=== PATIENT | male | born 1960 | race Caucasian/White ===

== ENCOUNTER 2018-11-08 14:14 | Inpatient (IN) | payer OTHER, MEDICAID ==
[~2018-11-08] VITALS: Ht 91.4 cm; Wt 70.8 kg
--- NOTE | 2018-11-08 14:19 | NUR ---
Patient to ER bed 05 to gown for evaluation. Side rails up.
[2018-11-08 14:21] VITALS: BP_SYST 128
--- NOTE | 2018-11-08 14:25 | NUR ---
Pt bib EMS from [facility] for further evaluation of lower abd pain.Pt h/o bilateral AKA,colostomy,HTN,DM,Blindness,osteomylitis,Stage IV decub coccyx,MRSA wounds and hyperlipidemia.
--- NOTE | 2018-11-08 14:29 | NUR ---
ER at bedside examining patient.
--- NOTE | 2018-11-08 14:40 | NUR ---
# 20 gauge angiocath placed to RAC. Use of asceptic technique. Opsite placed over site. Blood return noted. Blood for lab drawn from site. Flushed with 10 cc of normal saline. No evidence of infiltration noted. Patient tolerated well.
[2018-11-08 14:58] LABS: HEMATOCRIT 41.5 % (36-54); HEMOGLOBIN 13.5 g/dL (14.0-18.0); LYMPHOCYTES % (AUTO) 14.7 % (20.5-51.5); MEAN CORPUSCULAR HEMOGLOBIN 28 pg (27-31); MEAN CORPUSCULAR HGB CONC 33 % (32-36); MEAN CORPUSCULAR VOLUME 85 fL (79.0-98.0); MONOCYTES % (AUTO) 10.7 % (1.7-9.3); NEUTROPHILS % (AUTO) 71.6 % (40.0-70.0); PLATELET COUNT (AUTO) 334 K/uL (130-430); RED BLOOD CELL COUNT(AUTO) 4.88 MIL/uL (4.2-6.2); RED CELL DISTRIBUTION WIDTH 15.6 % (9.0-15.0); WHITE BLOOD COUNT (AUTO) 11.1 K/uL (4.8-10.8)
[2018-11-08 14:59] LABS: BASOPHILS # (AUTO) 0.1 K/uL (0.0-0.2); BASOPHILS % (AUTO) 0.7 % (0.0-2.0); EOSINOPHILS # (AUTO) 0.3 K/uL (0.0-0.4); EOSINOPHILS % (AUTO) 2.3 % (0.0-4.0); LYMPHOCYTES # (AUTO) 1.6 K/uL (1.0-5.5); MONOCYTES # (AUTO) 1.2 K/uL (0.0-1.0); NEUTROPHILS # (AUTO) 7.9 K/uL (1.8-7.7)
--- NOTE | 2018-11-08 15:03 | NUR ---
Patient transported to radiology via GURNEY, accompanied by RAD STAFF.
--- NOTE | 2018-11-08 15:10 | NUR ---
Returned from radiology, back to [facility].
[2018-11-08 15:11] LABS: ACETONE, SERUM NEGATIVE (NEGATIVE)
[2018-11-08 15:12] LABS: POTASSIUM 4.3 mmol/L (3.5-5.1); SODIUM SERUM 139 mmol/L (136-145)
--- NOTE | 2018-11-08 15:12 | NUR ---
Medication reconciliation completed with information provided by FACILITY. Any prior medication reconciliation on file was reviewed and corrected.
[2018-11-08 15:13] LABS: ALANINE AMINOTRANSFERASE 35 U/L (12-78); ANION GAP 8 (5-15); ASPARTATE AMINOTRANSFERASE 23 U/L (10-37); CALCIUM 9.2 mg/dL (8.4-11.0); CHLORIDE 100 mmol/L (98-107); CREATININE 0.85 mg/dL (0.55-1.30); GFR AFRICAN AMERICAN 119 mL/min (>90); GLUCOSE 176 mg/dL (70-99); TOTAL BILIRUBIN 0.2 mg/dL (0.0-1.0); UREA NITROGEN, BLOOD 14 mg/dL (8-21)
[2018-11-08 15:32] LABS: CLARITY/URINE CLEAR (CLEAR); COLOR,URINE YELLOW (YELLOW)
[2018-11-08 15:33] LABS: BILIRUBIN,URINE NEGATIVE (NEGATIVE); BLOOD, URINE NEGATIVE (NEGATIVE); GLUCOSE,URINE NEGATIVE (NEGATIVE); KETONES,URINE NEGATIVE (NEGATIVE); LEUKOCYTE ESTERASE ,URINE NEGATIVE (NEGATIVE); NITRITE, URINE NEGATIVE (NEGATIVE); PROTEIN URINE NEGATIVE (NEGATIVE); UROBILINOGEN,URINE 0.2 (0.2-1.0)
[2018-11-08] MEDS ORDERED: ONDANSETRON HCL 4 MG/2 ML VIAL IVP ONE (16:00)
[2018-11-08] MEDS ORDERED: MORPHINE 2 MG/ML INJ. SYRINGE IVP ONE (16:00)
--- NOTE | 2018-11-08 16:30 | NUR ---
Pt medicated tolerated well.
--- NOTE | 2018-11-08 16:41 | NUR ---
Patient will be admitted to care of Kj OLVERA. Admitted to MED/SURG unit. Will go to room 111. Belongings list completed. Summary report printed. Report will be given at bedside.
--- NOTE | 2018-11-08 17:14 | NUR ---
ADMISSION NOTE Received patient from ER via gurney. Patient admitted with diagnosis of ingiunal hernia. Patient is awake, alert, oriented X 4. Patient oriented to hospital room, call light, toileting, pain management and safety-teach back done. Patient informed that will be nurse and that their room number is his. Personal belongings checked and Belongings List documented. Call light within reach.
[2018-11-08 17:18] VITALS: BP_SYST 105
--- NOTE | 2018-11-08 17:56 | NUR ---
CONSULT SURGERY INGUINAL HERNIA DR HALL [phone] S/W BESSIE EXCHANGE DR HALL IS ON SUSPENSION DR BRUCE WITH KATHY CHARGE NURSE
--- NOTE | 2018-11-08 18:50 | NUR ---
Closing Note Patient is sleeping in bed. Contact isolation precautions are in place. Patient is in stable condition. Will endorse care to the oncoming nurse
--- NOTE | 2018-11-08 19:37 | NUR ---
OPENING NOTE Received report from EGORGE Cardenas. Patient resting in bed with eyes closed. Breathing unlabored and even on room air. No signs of distress, no needs at this time. Fall, safety, contact precautions in place. Bed in lowest position, brake on, alarm on, call light within reach. Will continue to monitor.
[2018-11-08 20:47] VITALS: BP_SYST 113
--- NOTE | 2018-11-08 21:02 | NUR ---
Patient refused shift assessment.
--- NOTE | 2018-11-08 21:23 | NUR ---
Paged Delvin Curiel s/w Emely
[2018-11-08] MEDS ORDERED: D5W 1,000 ML IV PRN (21:29)
[2018-11-08] MEDS ORDERED: HYDROcodone/ACETAMIN 7.5-325 MG TAB PO PRN (21:30)
[2018-11-08] MEDS ORDERED: DEXTROSE 50% JECT 50 ML DISP.SYRIN IVP PRN (21:30)
[2018-11-08] MEDS ORDERED: GLUCOSE 15 GM GEL (in 37.5 GM TUBE) PO PRN (21:30)
[2018-11-08] MEDS ORDERED: ONDANSETRON HCL 4 MG/2 ML VIAL IVP PRN (21:30)
--- NOTE | 2018-11-08 21:50 | NUR ---
Dr. King called back. Orders received
--- NOTE | 2018-11-08 21:50 | NUR ---
Dr. Morton at the bedside.
[2018-11-08] MEDS: MORPHINE 2 MG/ML INJ. SYRINGE IVP PRN (21:52)
[2018-11-08] MEDS ORDERED: MORPHINE 2 MG/ML INJ. SYRINGE ONE (21:54)
[2018-11-08] MEDS: INSULIN REGULAR, HUMAN 100 UNITS/ML, 10 ML VIAL (humuLIN R) SUBCUT PRN (21:55)
--- NOTE | 2018-11-08 22:03 | NUR ---
Patient c/o pain. Administered prn morphine IVP as ordered.
--- NOTE | 2018-11-09 | NUR ---
Patient is now NPO
[2018-11-09] MEDS: D5NS 1,000 ML IV SCH ×2 (00:28→14:01)
--- NOTE | 2018-11-09 02:50 | NUR ---
Patient resting in bed with eyes closed. Breathing unlabored and even on room air. No signs of distress, no needs at this time. Fall, safety, contact precautions in place. Bed in lowest position, brake on, alarm on, call light within reach. IVF infusing as ordered. Will continue to monitor.
[2018-11-09] MEDS: MORPHINE 2 MG/ML INJ. SYRINGE IVP PRN ×5 (04:29→20:44)
--- NOTE | 2018-11-09 04:32 | NUR ---
Patient c/o pain. Administered PRN morphine IVP as ordered.
[2018-11-09] MEDS: INSULIN REGULAR, HUMAN 100 UNITS/ML, 10 ML VIAL (humuLIN R) SUBCUT PRN (05:59)
--- NOTE | 2018-11-09 06:00 | NUR ---
Blood sugar: 140. No insulin coverage needed per PRN insulin sliding scale.
--- NOTE | 2018-11-09 06:51 | NUR ---
CLOSING NOTE Patient resting in bed with eyes closed. Breathing unlabored and even on room air. No signs of distress, no needs at this time. Fall, safety, contact precautions in place. Bed in lowest position, brake on, alarm on, call light within reach. IVF infusing as ordered. Will endorse cares to day shift nurse.
--- NOTE | 2018-11-09 07:25 | NUR ---
Opening Note: Patient in bed resting. Patient denies pain and discomfort at this time. Breathing is even and unlabored with no distress noted. IV patent and intact running IVF per MD orders. Urinal within reach. Safety precautions in place; bed in lowest position, wheels locked, side rails x3, bed alarm activated and call light within reach. No needs at this time. Will continue to monitor.
[2018-11-09 08:36] VITALS: BP_SYST 129
--- NOTE | 2018-11-09 08:43 | NUR ---
REFUSED TURNING/REPOSITIONING: PATIENT IN BED LAYING SUPINE, EXPLAINED TO PATIENT IMPORTANCE OF TURNING SIDE TO SIDE ONLY TO PREVENT FURTHER SKIN BREAKDOWN. PATIENT STATED "YOU KNOW WHAT I CAN TURN BY MYSELF WHEN I WANT TO AND I DON'T WANT TO TURN RIGHT NOW."
--- NOTE | 2018-11-09 10:08 | NUR ---
Rounds: Patient in bed resting, supine position. Refused to turn regardless of eduction. Will continue to monitor.
--- NOTE | 2018-11-09 10:30 | NUR ---
Nutrition Update Abhinav Scale 13 noted. Pt admitted for inguinal hernia. Diet: NPO BMI: 84.9 kg/m2 RD to follow per nutrition care standards.
--- NOTE | 2018-11-09 11:30 | NUR ---
Patient refused Blood sugar check: Patient refused blood sugar check. Will attempt to check blood sugar @1700 per MD orders.
[2018-11-09 11:35] VITALS: BP_SYST 148
--- NOTE | 2018-11-09 12:15 | NUR ---
Rounds/Refused IVF/Refused Wound Care: Patient in bed resting. Supine position, refused to be turned. Patient asked for IVF to be disconnected stating "Take this tube off of me, I don't need you to tell me why I'm taking the fluids, you know I've been in a hospital before and there's nothing new that you're going to teach me." Attempted to assess skin and do wound care patient refused as well.
--- NOTE | 2018-11-09 13:47 | NUR ---
Dietitian Recommendations * [facility], Glucerna BID, Dax BID if/when medically appropriate (modulars provide an additional 620 kcal/day and 25 gm protein/day) LP, RD Please refer to Nutrition Assessment for details.
--- NOTE | 2018-11-09 14:01 | NUR ---
Rounds/turning/ IVF: Patient in bed resting. Refused to be tuned and refused to be hooked up back to IVF. When asked about pain level for reassessment patient said, "Go away, and you let that doctor know if he's not going to do anything to send me home." No distress noted. Will continue to monitor.
--- NOTE | 2018-11-09 14:15 | NUR ---
Spoke to Dr. King: Spoke to Dr. King, made aware of patient refusing accuchecks and IVF. Diet orders received. Orders to be entered by RN.
--- NOTE | 2018-11-09 14:48 | NUR ---
Refused to eat: Patient offered snack, juice, turkey sandwich. Patient refused to eat. Snack left at bedside and patient encouraged to eat.
[2018-11-09 16:08] VITALS: BP_SYST 155
--- NOTE | 2018-11-09 16:43 | NUR ---
Pain Medication/Refused Blood sugar check: Patient refused blood sugar check. Medicated for severe pain, will reassess.
--- NOTE | 2018-11-09 17:36 | NUR ---
Spoke to Dr. May/Plan: Received call from Dr. May, per Dr. May "There's no indication for surgery based on the Abdominal/Pelvis CT. There and no signs of hernia, can you let Dr. King know." Informed Dr. May that I already spoke to Dr. King and made him aware, and that Dr. King put the patient on a CCHO diet and will most likely discharge him back to SNF. No orders received.
--- NOTE | 2018-11-09 18:57 | NUR ---
Closing Note: Patient in bed resting. Patient denies pain and discomfort at this time. Breathing is even and unlabored with no distress noted. IV patent and intact, saline locked secondary to patient refusing IVF. Patient refused colostomy burping stating "the bag is fine." Isolation precautions in place. Safety precautions in place; bed in lowest position, wheels locked, side rails x3, bed alarm activated and call light within reach. All needs met. Will endorse plan of care to NOC, nurse.
[2018-11-09 20:00] VITALS: BP_SYST 147
--- NOTE | 2018-11-09 20:00 | NUR ---
Initial Note Received patient asleep but arousable. Alert and oriented and a little bit withdrawn. Answers question. No SOB noted. Denies any n/v at this time. Complain of pain and will medicated. VS taken and stable. Saline lock, refused IVF to be connected. Given warm blanket as requested. Chace AKA. Repositions himself to the left side. Refused to have his colostomy checked and back side. Patient verbalized "Its fine! its doesn't have gas". Call light within reach. Bed alarm on and at lowest position at all times. Care and monitoring will be provided per protocol. Needs attended. Kept warm and comfortable.
--- NOTE | 2018-11-09 20:44 | NUR ---
RN Note Patient agreed to have his VS checked and blood sugar checked earlier. Blood sugar was 119, no coverage given. Medicated for pain per patient's request. Made him aware the next pain medication is due. Able to reposition himself. Asked if he wants me to close the blinds on his windows and he replied that he is blind. AM RN didn't endorsed that patient is blind. Still refusing to check his colostomy and skin/wound.
--- NOTE | 2018-11-09 21:50 | NUR ---
RN Note Patient sleeping at this time. No SOB or grimacing noted.
--- NOTE | 2018-11-09 22:47 | NUR ---
Transfer of Care Afebrile. No changes from previous assessment. Still refusing to be assessed. Refused IVF, colostomy care and skin assessment. Medicated for pain one time. Repositions himself. Care and monitoring provided per protocol. Call light within reach. Bed alarm onand at lowest position at all times. Needs attended. Endorsed to GEORGE Valdez.
[2018-11-10] MEDS: MORPHINE 2 MG/ML INJ. SYRINGE IVP PRN ×5 (00:53→17:19)
--- NOTE | 2018-11-10 01:14 | NUR ---
DR. LISA GONZALEZ HERE MAKING ROUNDS AND SAW PATIENT. WILL CONTINUE TO MONITOR.
--- NOTE | 2018-11-10 02:08 | NUR ---
DR. GONZALEZ CALLED AND TALKED TO DR. GONZALEZ, PATIENT MRSA NARES (+) PER LAB. NEW ORDERS GIVEN. WILL CONTINUE TO MONITOR.
[2018-11-10 02:29] VITALS: BP_SYST 153
--- NOTE | 2018-11-10 04:13 | NUR ---
ROUNDS PATIENT ASLEEP, RESPIRATIONS EVEN AND UNLABORED, NO PAIN AND DISCOMFORT NOTED. WILL CONTINUE TO MONITOR.
[2018-11-10] MEDS: metroNIDAZOLE 500 MG TABLET PO SCH ×2 (06:00→13:17)
--- NOTE | 2018-11-10 06:34 | NUR ---
CLOSING NOTES PATIENT REFUSED DUE MEDICATION FLAGYL AND ACCU CHECK AT THIS TIME. RISKS AND BENEFITS EXPLAINED BUT PATIENT STILL REFUSED. SAFETY AND FALL PRECAUTION MEASURES MAINTAINED. CALL LIGHT PLACED WITHIN REACH.
--- NOTE | 2018-11-10 07:38 | NUR ---
OPENING NOTE Patient resting in the bed. No acute distress. AAO x 4. No c/o pain at this time. Skin warm and dry to touch. SL intact to RAC, no redness, no swelling. Colostomy bag intact to left abdomen, no stool, no leakage noted at this time. On contact isolation. Discussed the safety issue, use call light when needs help, and plan of care, verbally understanding. Safety measure maintained. Bed locked in low position, side rails up, bed alarm on. Call light within reached. Will continue to monitor.
[2018-11-10 08:00] VITALS: BP_SYST 159
[2018-11-10] MEDS ORDERED: MUPIROCIN 2% TOPICAL OINTMENT 22 GM NS SCH (09:00)
--- NOTE | 2018-11-10 09:15 | NUR ---
MORPHINE GIVEN Patient c/o generalized pain 01/31, Morphine 2mg IVP given as ordered. No acute distress. Safety measure maintained. Call light within reached. Bed locked in low position, side rails up, bed alarm on. Call light within reached. Continue on contact isolation. Continue to monitor.
[2018-11-10] MEDS ORDERED: LEVOFLOXACIN 500 MG TABLET PO SCH (10:00)
[2018-11-10 12:10] VITALS: BP_SYST 147
--- NOTE | 2018-11-10 12:18 | NUR ---
ZA=[id number] No insulin coverage needed per sliding scale for TC=439.
--- NOTE | 2018-11-10 13:18 | NUR ---
MORPHINE GIVEN Patient c/o generalized pain 01/31, Morphine 2mg IVP given as ordered. No acute distress. Safety measure maintained. Call light within reached. Bed locked in low position, side rails up, bed alarm on. Continue on contact isolation. Continue to monitor.
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
--- NOTE | 2018-11-10 15:27 | NUR ---
Discharge Planning: DCP faxed to [facility] (f [phone] p [phone]) accepted back to [facility], [place] ([phone]). Patient nurse made aware, packet taken to nurse station. Addendum: 11/10/18 at 1531 by Moni Burns DP Patient to be picked up at 4:30pm
[2018-11-10 16:00] VITALS: BP_SYST 148
--- NOTE | 2018-11-10 16:05 | NUR ---
REPORT GIVEN Called [facility], report given to GERONIMO Chase. The patient will admit to room 9A.
[2018-11-10 17:01] VITALS: BP_SYST 148
--- NOTE | 2018-11-10 17:40 | NUR ---
PT TRANSFERRED Report given to GERONIMO Chase at 1605. Transfer packet with Transfer Orders and Medication Reconciliation form given to EMT with report. Exitcare provided. [facility] ID band removed, replaced with ID band with pt's name and . IV catheter removed, intact and dressing applied, no active bleeding. All belongings sent with patient. Patient left floor via gurney escorted by EMT in no distress.
[2018-11-11] MEDS ORDERED: BALSAM PERU/CASTOR OIL 60 GM OINT...G. TP SCH (09:00)
== END 2018-11-10 17:40 | DRG 394 ==
LOC: SED 14:14 → SMU 16:13
PROVIDERS: ADMIT Internal Medicine Infectious Disease; ATTEND Internal Medicine Infectious Disease
DX: K42.9 Umbilical hernia without obstruction or gangrene (principal); F20.0 Paranoid schizophrenia; E11.9 Type 2 diabetes mellitus without complications; E78.5 Hyperlipidemia, unspecified; D72.829 Elevated white blood cell count, unspecified; J44.9 Chronic obstructive pulmonary disease, unspecified; L89.152 Pressure ulcer of sacral region, stage 2; L89.229 Pressure ulcer of left hip, unspecified stage; F17.200 Nicotine dependence, unspecified, uncomplicated; H54.7 Unspecified visual loss; Z89.611 Acquired absence of right leg above knee; Z89.612 Acquired absence of left leg above knee; Z93.3 Colostomy status; Z88.8 Allergy status to other drugs, medicaments and biological substances; Z91.018 Allergy to other foods
CPT/HCPCS: 36415; 80053; 81003; 82009-TC; 82962; 85025; 87081; 93005; 96374; 96375; 99285; J1815; J2270; J2405; J7042

== ENCOUNTER 2019-04-12 10:22 | Emergency (ER) | payer OTHER, MEDICAID ==
[~2019-04-12] VITALS: Ht 152.4 cm; Wt 71.7 kg
[2019-04-12 10:25] VITALS: BP_SYST 132
[2019-04-12] MEDS ORDERED: NACL 0.9% 1,000 ML IV ONE (10:30)
[2019-04-12 11:16] LABS: CALCIUM 9.2 mg/dL (8.4-11.0); CREATININE 0.87 mg/dL (0.55-1.30); POTASSIUM 4.5 mmol/L (3.5-5.1)
[2019-04-12 11:18] LABS: BASOPHILS # (AUTO) 0.1 K/uL (0.0-0.2); BASOPHILS % (AUTO) 1.2 % (0.0-2.0); EOSINOPHILS # (AUTO) 0.3 K/uL (0.0-0.4); EOSINOPHILS % (AUTO) 2.7 % (0.0-4.0); HEMATOCRIT 44.8 % (36-54); LYMPHOCYTES # (AUTO) 1.4 K/uL (1.0-5.5); LYMPHOCYTES % (AUTO) 13.9 % (20.5-51.5); MEAN CORPUSCULAR HEMOGLOBIN 29 pg (27-31); MEAN CORPUSCULAR HGB CONC 33 % (32-36); MEAN CORPUSCULAR VOLUME 85 fL (79.0-98.0); MONOCYTES % (AUTO) 9.7 % (1.7-9.3); NEUTROPHILS # (AUTO) 7.6 K/uL (1.8-7.7); NEUTROPHILS % (AUTO) 72.5 % (40.0-70.0); PLATELET COUNT (AUTO) 242 K/uL (130-430); RED BLOOD CELL COUNT(AUTO) 5.25 MIL/uL (4.2-6.2); RED CELL DISTRIBUTION WIDTH 16.8 % (9.0-15.0); WHITE BLOOD COUNT (AUTO) 10.4 K/uL (4.8-10.8)
[2019-04-12 11:21] LABS: ALBUMIN 3.3 g/dL (3.4-4.8); TOTAL BILIRUBIN 0.2 mg/dL (0.0-1.0)
[2019-04-12 11:43] LABS: BILIRUBIN,URINE NEGATIVE (NEGATIVE); BLOOD, URINE NEGATIVE (NEGATIVE); CLARITY/URINE TURBID (CLEAR); COLOR,URINE YELLOW (YELLOW); GLUCOSE,URINE NEGATIVE (NEGATIVE); KETONES,URINE NEGATIVE (NEGATIVE); LEUKOCYTE ESTERASE ,URINE TRACE (NEGATIVE); NITRITE, URINE NEGATIVE (NEGATIVE); PROTEIN URINE 1+ (NEGATIVE); UROBILINOGEN,URINE 0.2 (0.2-1.0)
[2019-04-12 11:59] LABS: BACTERIA,URINE FEW /HPF (None Seen); RBC,URINE 0-3 /HPF (0-3)
[2019-04-12] MEDS ORDERED: INSULIN REGULAR, HUMAN 10 UNITS/0.1 ML INJ IVP ONE (12:15)
[2019-04-12] MEDS ORDERED: cefTRIAXone 1 GM IVPB PREMIX 50 ML IV ONE (12:15)
[2019-04-12] MEDS ORDERED: MORPHINE 4 MG/ML INJ. SYRINGE IVP ONE (12:30)
[2019-04-12 14:30] VITALS: BP_SYST 132
== END 2019-04-12 14:21 | disposition home or self-care (01) ==
LOC: SED 10:22
DX: N39.0 Urinary tract infection, site not specified (principal); L98.429 Non-pressure chronic ulcer of back with unspecified severity; I10 Essential (primary) hypertension; E11.9 Type 2 diabetes mellitus without complications; J44.9 Chronic obstructive pulmonary disease, unspecified; F17.210 Nicotine dependence, cigarettes, uncomplicated; Z91.018 Allergy to other foods; Z71.6 Tobacco abuse counseling
CPT/HCPCS: 36415; 71045; 80053; 81000; 82962; 83605; 84484; 85025; 87040; 87086; 93005; 96365; 96375; 99284; J0696; J1815; J2270; J7030

== ENCOUNTER 2020-07-14 02:08 | Inpatient (IN) | payer OTHER, MEDICAID, SELFPAY ==
[~2020-07-14] VITALS: Ht 104.1 cm; Wt 84.4 kg
[2020-07-14 05:22] VITALS: BP_SYST 98
[2020-07-14 05:30] VITALS: BP_SYST 108
[2020-07-14] MEDS ORDERED: ALBUMIN HUMAN 25% 200 ML IV ONE (05:30)
[2020-07-14] MEDS ORDERED: ONDANSETRON HCL 4 MG/2 ML VIAL IVP PRN (05:30)
[2020-07-14] MEDS ORDERED: LORazepam 2 MG/ML VIAL IVP PRN ×2 (05:30→18:00)
[2020-07-14] MEDS: HYDROmorphone 1 MG INJ. 1 MG/ML AMPUL IVP PRN ×5 (05:50→23:00)
[2020-07-14] MEDS: NACL 0.9% 1,000 ML IV SCH ×2 (05:51→23:12)
[2020-07-14] MEDS ORDERED: ZINC50TA69 PO (06:02)
[2020-07-14] MEDS ORDERED: PREG200C PO (06:02)
[2020-07-14] MEDS ORDERED: ACET325T53 PO (06:02)
[2020-07-14] MEDS ORDERED: DOCU-144 PO (06:02)
[2020-07-14] MEDS ORDERED: ASPI-1393 PO (06:02)
[2020-07-14] MEDS ORDERED: ASCO500T20 PO (06:02)
[2020-07-14] MEDS ORDERED: GLU500 PO (06:02)
[2020-07-14] MEDS ORDERED: CHOL100038 PO (06:02)
[2020-07-14] MEDS ORDERED: CRAN450T9 PO (06:02)
[2020-07-14] MEDS ORDERED: BACL10TA PO (06:02)
[2020-07-14] MEDS ORDERED: LISI10TA PO (06:02)
[2020-07-14] MEDS ORDERED: ACETAMINOPHEN 325 MG TABLET PO PRN (06:15)
[2020-07-14] MEDS: ASCORBIC ACID 500 MG TABLET PO SCH (07:57)
[2020-07-14] MEDS: DEXAMETHASONE SOD PHOSPHATE 10 MG/ML VIAL IVP SCH (07:57)
[2020-07-14 07:59] LABS: BASOPHILS # (AUTO) 0.1 K/uL (0.0-0.2); BASOPHILS % (AUTO) 0.9 % (0.0-2.0); EOSINOPHILS % (AUTO) 0.2 % (0.0-4.0); HEMATOCRIT 38.3 % (36-54); HEMOGLOBIN 12.2 g/dL (14.0-18.0); LYMPHOCYTES # (AUTO) 0.6 K/uL (1.0-5.5); LYMPHOCYTES % (AUTO) 9.1 % (20.5-51.5); MEAN CORPUSCULAR HEMOGLOBIN 28 pg (27-31); MEAN CORPUSCULAR HGB CONC 32 % (32-36); MEAN CORPUSCULAR VOLUME 86 fL (79.0-98.0); MONOCYTES # (AUTO) 0.6 K/uL (0.0-1.0); MONOCYTES % (AUTO) 9.8 % (1.7-9.3); PLATELET COUNT (AUTO) 179 K/uL (130-430); RED BLOOD CELL COUNT(AUTO) 4.44 MIL/uL (4.2-6.2); RED CELL DISTRIBUTION WIDTH 17.7 % (9.0-15.0); WHITE BLOOD COUNT (AUTO) 6.3 K/uL (4.8-10.8)
[2020-07-14 08:24] LABS: ALBUMIN 3.6 g/dL (3.4-4.8); CALCIUM 8.6 mg/dL (8.4-11.0); CREATININE 0.85 mg/dL (0.55-1.30); POTASSIUM 4.6 mmol/L (3.5-5.1); THYROID STIMULATING HORMONE 1.68 uIu/mL (0.36-3.74); TOTAL BILIRUBIN 0.6 mg/dL (0.0-1.0)
[2020-07-14 08:30] VITALS: BP_SYST 108
[2020-07-14] MEDS: ALBUTEROL SULFATE 0.083% 2.5 MG/3 ML VIAL.NEB INH PRN (08:52)
[2020-07-14] MEDS: IPRATROPIUM BROM 0.5 MG/2.5 ML VIAL.NEB (ATROVENT) INH PRN (08:52)
[2020-07-14] MEDS ORDERED: NON-FORMULARY MEDICATION (Zinc 50 MG) PO SCH (09:00)
[2020-07-14] MEDS: cefTRIAXone 1 GM in D5W 50 ML IV SCH (10:24)
[2020-07-14] MEDS: CHOLECALCIFEROL (VITAMIN D3) 2,000 UNIT TABLET PO SCH (10:31)
[2020-07-14] MEDS: AZITHROMYCIN 500 MG in NS 250 ML IV SCH (11:29)
[2020-07-14 11:43] VITALS: BP_SYST 136
[2020-07-14 16:00] VITALS: BP_SYST 115
[2020-07-14] MEDS: INSULIN REGULAR, HUMAN 100 UNITS/ML, 10 ML VIAL (humuLIN R) SUBCUT PRN ×2 (18:19→20:55)
[2020-07-14 19:49] VITALS: BP_SYST 121; BP_SYST 123
[2020-07-14 20:41] LABS: BILIRUBIN,URINE 1+ (NEGATIVE); CLARITY/URINE CLEAR (CLEAR); COLOR,URINE YELLOW (YELLOW); GLUCOSE,URINE NEGATIVE (NEGATIVE); KETONES,URINE TRACE (NEGATIVE); LEUKOCYTE ESTERASE ,URINE NEGATIVE (NEGATIVE); NITRITE, URINE NEGATIVE (NEGATIVE); PROTEIN URINE 3+ (NEGATIVE)
[2020-07-14 20:44] LABS: BLOOD, URINE TRACE (NEGATIVE)
[2020-07-14 20:55] LABS: BACTERIA,URINE MODERATE /HPF (None Seen); WBC,URINE 0-3 /HPF (0-3)
[2020-07-14 20:56] LABS: MUCUS,URINE None Seen /LPF (None Seen)
[2020-07-15] VITALS: BP_SYST 106
[2020-07-15] MEDS: HYDROmorphone 1 MG INJ. 1 MG/ML AMPUL IVP PRN ×3 (06:31→20:25)
[2020-07-15 08:08] VITALS: BP_SYST 116
[2020-07-15] MEDS: ASCORBIC ACID 500 MG TABLET PO SCH (08:32)
[2020-07-15] MEDS: cefTRIAXone 1 GM in D5W 50 ML IV SCH (08:33)
[2020-07-15] MEDS: DEXAMETHASONE SOD PHOSPHATE 10 MG/ML VIAL IVP SCH (08:33)
[2020-07-15] MEDS: CHOLECALCIFEROL (VITAMIN D3) 2,000 UNIT TABLET PO SCH (08:33)
[2020-07-15] MEDS: AZITHROMYCIN 500 MG in NS 250 ML IV SCH (09:14)
[2020-07-15] MEDS: FUROSEMIDE 40 MG/4 ML VIAL IVP SCH (10:35)
[2020-07-15] MEDS: CARVEDILOL 6.25 MG TABLET (COREG) PO SCH ×2 (10:35→20:26)
[2020-07-15 11:33] VITALS: BP_SYST 139
[2020-07-15] MEDS: INSULIN REGULAR, HUMAN 100 UNITS/ML, 10 ML VIAL (humuLIN R) SUBCUT PRN ×2 (12:31→20:34)
[2020-07-15] MEDS: ALBUTEROL SULFATE 0.083% 2.5 MG/3 ML VIAL.NEB INH PRN (12:56)
[2020-07-15] MEDS: IPRATROPIUM BROM 0.5 MG/2.5 ML VIAL.NEB (ATROVENT) INH PRN (12:56)
[2020-07-15 16:07] VITALS: BP_SYST 95
[2020-07-15 20:00] VITALS: BP_SYST 116
[2020-07-15] MEDS: NACL 0.9% 1,000 ML IV SCH (21:30)
[2020-07-16] VITALS: BP_SYST 119
[2020-07-16] MEDS: HYDROmorphone 1 MG INJ. 1 MG/ML AMPUL IVP PRN ×5 (03:45→23:44)
[2020-07-16] MEDS: NACL 0.9% 1,000 ML IV SCH (03:46)
[2020-07-16] MEDS: INSULIN REGULAR, HUMAN 100 UNITS/ML, 10 ML VIAL (humuLIN R) SUBCUT PRN ×2 (06:30→12:29)
[2020-07-16 06:40] LABS: BASOPHILS % (AUTO) 0.2 % (0.0-2.0); HEMATOCRIT 43.5 % (36-54); LYMPHOCYTES # (AUTO) 0.6 K/uL (1.0-5.5); LYMPHOCYTES % (AUTO) 8.9 % (20.5-51.5); MEAN CORPUSCULAR HEMOGLOBIN 28 pg (27-31); MEAN CORPUSCULAR HGB CONC 32 % (32-36); MEAN CORPUSCULAR VOLUME 86 fL (79.0-98.0); MONOCYTES # (AUTO) 0.7 K/uL (0.0-1.0); MONOCYTES % (AUTO) 10.2 % (1.7-9.3); NEUTROPHILS # (AUTO) 5.6 K/uL (1.8-7.7); NEUTROPHILS % (AUTO) 80.7 % (40.0-70.0); PLATELET COUNT (AUTO) 199 K/uL (130-430); RED BLOOD CELL COUNT(AUTO) 5.06 MIL/uL (4.2-6.2); RED CELL DISTRIBUTION WIDTH 18.2 % (9.0-15.0)
[2020-07-16 06:49] LABS: CREATININE 1.07 mg/dL (0.55-1.30); POTASSIUM 5.1 mmol/L (3.5-5.1); TOTAL BILIRUBIN 0.5 mg/dL (0.0-1.0)
[2020-07-16 08:00] VITALS: BP_SYST 112
[2020-07-16] MEDS: DEXAMETHASONE SOD PHOSPHATE 10 MG/ML VIAL IVP SCH (08:48)
[2020-07-16] MEDS: FUROSEMIDE 40 MG/4 ML VIAL IVP SCH (08:48)
[2020-07-16] MEDS: CHOLECALCIFEROL (VITAMIN D3) 2,000 UNIT TABLET PO SCH (08:49)
[2020-07-16] MEDS: ASCORBIC ACID 500 MG TABLET PO SCH (08:49)
[2020-07-16] MEDS: CARVEDILOL 6.25 MG TABLET (COREG) PO SCH ×2 (08:49→21:18)
[2020-07-16] MEDS: cefTRIAXone 1 GM in D5W 50 ML IV SCH (08:50)
[2020-07-16] MEDS ORDERED: metOLazone 5 MG TABLET ONE (09:43)
[2020-07-16] MEDS ORDERED: metOLazone 5 MG TABLET PO ONE (09:45)
[2020-07-16] MEDS: AZITHROMYCIN 500 MG in NS 250 ML IV SCH (09:47)
[2020-07-16 12:03] VITALS: BP_SYST 132
[2020-07-16 16:05] VITALS: BP_SYST 107
[2020-07-16 20:00] VITALS: BP_SYST 110
[2020-07-17] VITALS: BP_SYST 123
[2020-07-17] MEDS ORDERED: ALBUTEROL MDI INHALATION 8 GM INH INH PRN (01:30)
[2020-07-17] MEDS ORDERED: ALBUTEROL MDI INHALATION 8 GM INH INH SCH (01:30)
[2020-07-17] MEDS: HYDROmorphone 1 MG INJ. 1 MG/ML AMPUL IVP PRN ×4 (03:39→21:02)
[2020-07-17 08:30] VITALS: BP_SYST 121
[2020-07-17] MEDS: FUROSEMIDE 40 MG/4 ML VIAL IVP SCH (09:57)
[2020-07-17] MEDS: ASCORBIC ACID 500 MG TABLET PO SCH (09:57)
[2020-07-17] MEDS: DEXAMETHASONE SOD PHOSPHATE 10 MG/ML VIAL IVP SCH (09:57)
[2020-07-17] MEDS: cefTRIAXone 1 GM in D5W 50 ML IV SCH (09:57)
[2020-07-17] MEDS: CARVEDILOL 6.25 MG TABLET (COREG) PO SCH ×2 (09:58→21:13)
[2020-07-17] MEDS: CHOLECALCIFEROL (VITAMIN D3) 2,000 UNIT TABLET PO SCH (09:58)
[2020-07-17] MEDS: TAMSULOSIN HCL 0.4 MG CAP PO SCH (10:09)
[2020-07-17] MEDS ORDERED: metOLazone 2.5 MG TABLET PO ONE (10:15)
[2020-07-17] MEDS: AZITHROMYCIN 500 MG in NS 250 ML IV SCH (10:16)
[2020-07-17] MEDS ORDERED: metOLazone 5 MG TABLET ONE (12:12)
[2020-07-17] MEDS: INSULIN REGULAR, HUMAN 100 UNITS/ML, 10 ML VIAL (humuLIN R) SUBCUT PRN (12:24)
[2020-07-17 16:00] VITALS: BP_SYST 117
[2020-07-17] MEDS: NACL 0.9% 1,000 ML IV SCH (18:05)
[2020-07-17 20:00] VITALS: BP_SYST 125
[2020-07-18] MEDS: HYDROmorphone 1 MG INJ. 1 MG/ML AMPUL IVP PRN ×5 (04:14→21:34)
[2020-07-18 04:35] LABS: BASOPHILS % (AUTO) 0.1 % (0.0-2.0); HEMATOCRIT 42.7 % (36-54); HEMOGLOBIN 13.6 g/dL (14.0-18.0); LYMPHOCYTES # (AUTO) 0.4 K/uL (1.0-5.5); LYMPHOCYTES % (AUTO) 6.6 % (20.5-51.5); MEAN CORPUSCULAR HEMOGLOBIN 27 pg (27-31); MEAN CORPUSCULAR HGB CONC 32 % (32-36); MEAN CORPUSCULAR VOLUME 86 fL (79.0-98.0); MONOCYTES # (AUTO) 0.5 K/uL (0.0-1.0); MONOCYTES % (AUTO) 7.9 % (1.7-9.3); NEUTROPHILS # (AUTO) 5.3 K/uL (1.8-7.7); NEUTROPHILS % (AUTO) 85.4 % (40.0-70.0); PLATELET COUNT (AUTO) 154 K/uL (130-430); RED BLOOD CELL COUNT(AUTO) 4.99 MIL/uL (4.2-6.2); RED CELL DISTRIBUTION WIDTH 17.5 % (9.0-15.0); WHITE BLOOD COUNT (AUTO) 6.2 K/uL (4.8-10.8)
[2020-07-18 04:52] LABS: ALBUMIN 2.3 g/dL (3.4-4.8); CALCIUM 7.3 mg/dL (8.4-11.0); POTASSIUM 3.8 mmol/L (3.5-5.1); TOTAL BILIRUBIN 0.4 mg/dL (0.0-1.0)
[2020-07-18 07:51] VITALS: BP_SYST 139
[2020-07-18 08:06] LABS: PROSTATE SPECIFIC AG TOTAL <0.1 ng/mL (0.0-4.0)
[2020-07-18 09:06] LABS: FREE PSA <0.02 ng/mL
[2020-07-18] MEDS: CHOLECALCIFEROL (VITAMIN D3) 2,000 UNIT TABLET PO SCH (09:26)
[2020-07-18] MEDS: TAMSULOSIN HCL 0.4 MG CAP PO SCH (09:26)
[2020-07-18] MEDS: CARVEDILOL 6.25 MG TABLET (COREG) PO SCH ×2 (09:30→21:31)
[2020-07-18] MEDS: ASCORBIC ACID 500 MG TABLET PO SCH (09:30)
[2020-07-18] MEDS: metOLazone 2.5 MG TABLET PO SCH (09:31)
[2020-07-18] MEDS: FUROSEMIDE 40 MG/4 ML VIAL IVP SCH (09:31)
[2020-07-18] MEDS: cefTRIAXone 1 GM in D5W 50 ML IV SCH (09:32)
[2020-07-18] MEDS: DEXAMETHASONE SOD PHOSPHATE 10 MG/ML VIAL IVP SCH (09:32)
[2020-07-18] MEDS ORDERED: MENTHOL/ZINC OXIDE 113 GM OINT. TP PRN (10:45)
[2020-07-18] MEDS: AZITHROMYCIN 500 MG in NS 250 ML IV SCH (11:03)
[2020-07-18] MEDS: NACL 0.9% 1,000 ML IV SCH (11:03)
[2020-07-18] MEDS: INSULIN REGULAR, HUMAN 100 UNITS/ML, 10 ML VIAL (humuLIN R) SUBCUT PRN ×3 (12:16→21:35)
[2020-07-18] MEDS ORDERED: SPIRONOLACTONE 25 MG TABLET (ALDACTONE) PO ONE (14:30)
[2020-07-18 16:20] VITALS: BP_SYST 130
[2020-07-18 20:00] VITALS: BP_SYST 115
[2020-07-18] MEDS: SPIRONOLACTONE 25 MG TABLET (ALDACTONE) PO SCH (21:24)
[2020-07-19] MEDS: HYDROmorphone 1 MG INJ. 1 MG/ML AMPUL IVP PRN ×6 (01:32→21:22)
[2020-07-19 01:41] VITALS: BP_SYST 120
[2020-07-19] MEDS: INSULIN REGULAR, HUMAN 100 UNITS/ML, 10 ML VIAL (humuLIN R) SUBCUT PRN ×4 (06:51→21:30)
[2020-07-19 06:52] LABS: CALCIUM 7.9 mg/dL (8.4-11.0); CREATININE 1.07 mg/dL (0.55-1.30); POTASSIUM 4.2 mmol/L (3.5-5.1)
[2020-07-19 06:55] LABS: BASOPHILS % (AUTO) 0.1 % (0.0-2.0); HEMATOCRIT 43.4 % (36-54); HEMOGLOBIN 13.8 g/dL (14.0-18.0); LYMPHOCYTES # (AUTO) 0.4 K/uL (1.0-5.5); MEAN CORPUSCULAR HEMOGLOBIN 27 pg (27-31); MEAN CORPUSCULAR HGB CONC 32 % (32-36); MEAN CORPUSCULAR VOLUME 86 fL (79.0-98.0); MONOCYTES # (AUTO) 0.5 K/uL (0.0-1.0); MONOCYTES % (AUTO) 6.9 % (1.7-9.3); NEUTROPHILS # (AUTO) 6.4 K/uL (1.8-7.7); PLATELET COUNT (AUTO) 163 K/uL (130-430); RED BLOOD CELL COUNT(AUTO) 5.07 MIL/uL (4.2-6.2); RED CELL DISTRIBUTION WIDTH 18.2 % (9.0-15.0); WHITE BLOOD COUNT (AUTO) 7.3 K/uL (4.8-10.8)
[2020-07-19 08:00] VITALS: BP_SYST 161
[2020-07-19] MEDS: DEXAMETHASONE SOD PHOSPHATE 10 MG/ML VIAL IVP SCH (08:12)
[2020-07-19] MEDS: CHOLECALCIFEROL (VITAMIN D3) 2,000 UNIT TABLET PO SCH (08:13)
[2020-07-19] MEDS: TAMSULOSIN HCL 0.4 MG CAP PO SCH (08:13)
[2020-07-19] MEDS: ASCORBIC ACID 500 MG TABLET PO SCH (08:13)
[2020-07-19] MEDS: cefTRIAXone 1 GM in D5W 50 ML IV SCH (08:14)
[2020-07-19] MEDS: FUROSEMIDE 40 MG/4 ML VIAL IVP SCH (08:26)
[2020-07-19] MEDS: CARVEDILOL 6.25 MG TABLET (COREG) PO SCH ×2 (08:26→21:21)
[2020-07-19] MEDS: metOLazone 2.5 MG TABLET PO SCH (08:27)
[2020-07-19] MEDS: BALSAM PERU/CASTOR OIL 60 GM OINT...G. TP SCH (09:00)
[2020-07-19] MEDS: SPIRONOLACTONE 25 MG TABLET (ALDACTONE) PO SCH ×2 (09:32→21:20)
[2020-07-19 12:00] VITALS: BP_SYST 132
[2020-07-19 16:00] VITALS: BP_SYST 131
[2020-07-19 19:50] VITALS: BP_SYST 131
[2020-07-20] VITALS: BP_SYST 125
[2020-07-20] MEDS: HYDROmorphone 1 MG INJ. 1 MG/ML AMPUL IVP PRN ×6 (01:29→21:43)
[2020-07-20 07:55] VITALS: BP_SYST 150
[2020-07-20] MEDS: BALSAM PERU/CASTOR OIL 60 GM OINT...G. TP SCH (09:00)
[2020-07-20] MEDS: SPIRONOLACTONE 25 MG TABLET (ALDACTONE) PO SCH ×2 (09:34→20:32)
[2020-07-20] MEDS: TAMSULOSIN HCL 0.4 MG CAP PO SCH (09:34)
[2020-07-20] MEDS: ASCORBIC ACID 500 MG TABLET PO SCH (09:34)
[2020-07-20] MEDS: CHOLECALCIFEROL (VITAMIN D3) 2,000 UNIT TABLET PO SCH (09:35)
[2020-07-20] MEDS: FUROSEMIDE 40 MG/4 ML VIAL IVP SCH (09:36)
[2020-07-20] MEDS: cefTRIAXone 1 GM in D5W 50 ML IV SCH (09:46)
[2020-07-20] MEDS: metOLazone 2.5 MG TABLET PO SCH (09:59)
[2020-07-20] MEDS ORDERED: DEXAMETHASONE SOD PHOSPHATE 10 MG/ML VIAL ONE (09:59)
[2020-07-20] MEDS: CARVEDILOL 6.25 MG TABLET (COREG) PO SCH ×2 (10:00→20:32)
[2020-07-20] MEDS: DEXAMETHASONE SOD PHOSPHATE 10 MG/ML VIAL IVP SCH (10:00)
[2020-07-20 10:28] VITALS: BP_SYST 125
[2020-07-20 11:45] VITALS: BP_SYST 119
[2020-07-20] MEDS: INSULIN REGULAR, HUMAN 100 UNITS/ML, 10 ML VIAL (humuLIN R) SUBCUT PRN ×3 (12:10→20:39)
[2020-07-20 15:29] VITALS: BP_SYST 115
[2020-07-20 19:50] VITALS: BP_SYST 125
[2020-07-21] VITALS: BP_SYST 127
[2020-07-21] MEDS: HYDROmorphone 1 MG INJ. 1 MG/ML AMPUL IVP PRN ×6 (02:08→22:56)
[2020-07-21 08:00] VITALS: BP_SYST 152
[2020-07-21] MEDS ORDERED: DEXAMETHASONE SOD PHOSPHATE 10 MG/ML VIAL ONE (09:10)
[2020-07-21] MEDS: TAMSULOSIN HCL 0.4 MG CAP PO SCH (09:21)
[2020-07-21] MEDS: metOLazone 2.5 MG TABLET PO SCH (09:21)
[2020-07-21] MEDS: CHOLECALCIFEROL (VITAMIN D3) 2,000 UNIT TABLET PO SCH (09:21)
[2020-07-21] MEDS: CARVEDILOL 6.25 MG TABLET (COREG) PO SCH ×2 (09:22→21:31)
[2020-07-21] MEDS: SPIRONOLACTONE 25 MG TABLET (ALDACTONE) PO SCH ×2 (09:22→21:31)
[2020-07-21] MEDS: DEXAMETHASONE SOD PHOSPHATE 10 MG/ML VIAL IVP SCH (09:23)
[2020-07-21] MEDS: FUROSEMIDE 40 MG/4 ML VIAL IVP SCH (09:23)
[2020-07-21] MEDS: BALSAM PERU/CASTOR OIL 60 GM OINT...G. TP SCH (09:24)
[2020-07-21] MEDS: ASCORBIC ACID 500 MG TABLET PO SCH (09:28)
[2020-07-21] MEDS: cefTRIAXone 1 GM in D5W 50 ML IV SCH (09:28)
[2020-07-21 11:23] LABS: BASOPHILS % (AUTO) 0.1 % (0.0-2.0); HEMATOCRIT 45.9 % (36-54); HEMOGLOBIN 14.2 g/dL (14.0-18.0); LYMPHOCYTES # (AUTO) 0.5 K/uL (1.0-5.5); LYMPHOCYTES % (AUTO) 4.7 % (20.5-51.5); MEAN CORPUSCULAR HEMOGLOBIN 27 pg (27-31); MEAN CORPUSCULAR HGB CONC 31 % (32-36); MEAN CORPUSCULAR VOLUME 86 fL (79.0-98.0); MONOCYTES # (AUTO) 0.7 K/uL (0.0-1.0); MONOCYTES % (AUTO) 6.7 % (1.7-9.3); NEUTROPHILS # (AUTO) 9.9 K/uL (1.8-7.7); NEUTROPHILS % (AUTO) 88.5 % (40.0-70.0); PLATELET COUNT (AUTO) 167 K/uL (130-430); RED BLOOD CELL COUNT(AUTO) 5.35 MIL/uL (4.2-6.2); WHITE BLOOD COUNT (AUTO) 11.2 K/uL (4.8-10.8)
[2020-07-21 11:25] LABS: ALBUMIN 2.9 g/dL (3.4-4.8); CREATININE 1.01 mg/dL (0.55-1.30); PHOSPHORUS 4.1 mg/dL (2.7-4.5); POTASSIUM 4.5 mmol/L (3.5-5.1); TOTAL BILIRUBIN 0.6 mg/dL (0.0-1.0)
[2020-07-21 11:35] VITALS: BP_SYST 137
[2020-07-21] MEDS: INSULIN REGULAR, HUMAN 100 UNITS/ML, 10 ML VIAL (humuLIN R) SUBCUT PRN ×2 (13:10→21:39)
[2020-07-21 15:33] VITALS: BP_SYST 123
[2020-07-21 19:45] VITALS: BP_SYST 132
[2020-07-21] MEDS: FUROSEMIDE 40 MG TABLET PO SCH (21:30)
[2020-07-21] MEDS: APIXABAN 2.5 MG TABLET PO SCH (21:39)
[2020-07-22] VITALS: BP_SYST 136
[2020-07-22] MEDS: HYDROmorphone 1 MG INJ. 1 MG/ML AMPUL IVP PRN ×4 (03:55→17:21)
[2020-07-22] MEDS: INSULIN REGULAR, HUMAN 100 UNITS/ML, 10 ML VIAL (humuLIN R) SUBCUT PRN ×2 (06:38→12:16)
[2020-07-22 08:00] VITALS: BP_SYST 135
[2020-07-22] MEDS: ASCORBIC ACID 500 MG TABLET PO SCH (09:50)
[2020-07-22] MEDS: SPIRONOLACTONE 25 MG TABLET (ALDACTONE) PO SCH (09:53)
[2020-07-22] MEDS: FUROSEMIDE 40 MG TABLET PO SCH (09:53)
[2020-07-22] MEDS: APIXABAN 2.5 MG TABLET PO SCH (09:56)
[2020-07-22] MEDS: TAMSULOSIN HCL 0.4 MG CAP PO SCH (09:56)
[2020-07-22] MEDS: CHOLECALCIFEROL (VITAMIN D3) 2,000 UNIT TABLET PO SCH (09:56)
[2020-07-22] MEDS ORDERED: DEXAMETHASONE SOD PHOSPHATE 10 MG/ML VIAL ONE (10:01)
[2020-07-22] MEDS: CARVEDILOL 6.25 MG TABLET (COREG) PO SCH (10:02)
[2020-07-22] MEDS: metOLazone 2.5 MG TABLET PO SCH (10:03)
[2020-07-22] MEDS: DEXAMETHASONE SOD PHOSPHATE 10 MG/ML VIAL IVP SCH (10:04)
[2020-07-22] MEDS: cefTRIAXone 1 GM in D5W 50 ML IV SCH (10:04)
[2020-07-22 11:36] VITALS: BP_SYST 150
[2020-07-22] MEDS: BALSAM PERU/CASTOR OIL 60 GM OINT...G. TP SCH (14:30)
[2020-07-22 15:46] VITALS: BP_SYST 149
[2020-07-22 16:18] VITALS: BP_SYST 149
== END 2020-07-22 17:48 | DRG 193 ==
LOC: SMU 03:53 → STU 07-15 08:46
PROVIDERS: ADMIT Internal Medicine; ATTEND Internal Medicine
DX: J18.9 Pneumonia, unspecified organism (principal); J96.01 Acute respiratory failure with hypoxia; J44.1 Chronic obstructive pulmonary disease with (acute) exacerbation; I42.0 Dilated cardiomyopathy; J44.0 Chronic obstructive pulmonary disease with (acute) lower respiratory infection; E11.9 Type 2 diabetes mellitus without complications; E78.5 Hyperlipidemia, unspecified; F17.210 Nicotine dependence, cigarettes, uncomplicated; G89.4 Chronic pain syndrome; K59.00 Constipation, unspecified; M19.90 Unspecified osteoarthritis, unspecified site; Z20.822 Contact with and (suspected) exposure to COVID-19; R33.9 Retention of urine, unspecified; R31.0 Gross hematuria; S30.91XA Unspecified superficial injury of lower back and pelvis, initial encounter; Z86.16 Personal history of COVID-19; I11.0 Hypertensive heart disease with heart failure; I50.9 Heart failure, unspecified; X58.XXXA Exposure to other specified factors, initial encounter; Z89.612 Acquired absence of left leg above knee; Z99.3 Dependence on wheelchair; Z91.018 Allergy to other foods; Z88.8 Allergy status to other drugs, medicaments and biological substances; Z74.01 Bed confinement status; Z91.19 Patient's noncompliance with other medical treatment and regimen; Z89.611 Acquired absence of right leg above knee; Z93.3 Colostomy status; Y93.89 Activity, other specified; Y92.89 Other specified places as the place of occurrence of the external cause; Y99.8 Other external cause status
CPT/HCPCS: 36415; 36600; 71045; 76770; 80048; 80053; 81000-TC; 82803-TC; 82962; 83735-TC; 83880; 84100-TC; 84153; 84443-TC; 85025; 87040-TC; 87081; 87086; 93005; 93306; 94640; 94760; G0378; J0456; J0696; J1100; J1170; J1815; J1940; J7050; J7060; U0003